=== PATIENT | male | born 1955 | race Caucasian/White ===

== ENCOUNTER 2016-06-13 11:30 | Outpatient (RCR) | payer MEDICARE, OTHER ==
[~2016-06-13 11:30] MED LIST: AMBIEN 10MG10 MG PO; CALCIUM500 MG PO; CELEBREX 1100 MG/CAP PO; FOLIC ACID 11 MG/TA1 PO; LORTAB ELIX0.5 MG/ML PO; MORPHINE 1515 MG/TAB PO; MS CONTIN 330 MG/TAB PO; MUCINEX 60600 MG/TA1 PO; NEURONTIN300 MG/CAP PO; OPDIVO10 MG/ML IV; PRINIVIL40 MG PO; RT ADVAIR 228 DISKUS IH; TYLENOL #4 (1 UDTAB PO; ULTRAM 50MG TAB50 MG PO; VENTOLIN0.09 MG IH; VITAMIN D3400 I1 PO; ZOCOR 20MG20 MG PO; ZYLOPRIM 100MG100 MG PO; vit D
[2016-06-23] MEDS ORDERED: NEURONTIN600 MG/TAB PO (10:09)
[2016-06-23] MEDS ORDERED: FLEXERIL5 MG PO (10:10)
[2016-06-23] MEDS ORDERED: MORPHINE 1515 MG/TAB PO (17:37)
[2016-07-02] MEDS ORDERED: CLEOCIN HCL300 MG PO (10:28)
[2016-07-02] MEDS ORDERED: IPRATROPIUM BROM3 M1 IH ×2 (10:29)
[2016-07-02] MEDS ORDERED: MS CONTIN 330 MG/TAB PO (10:31)
[2016-07-12] MEDS ORDERED: MIRTAZAPINE7.5 MG PO (09:24)
[2016-07-12] MEDS ORDERED: TYLENOL 325MG325 MG PO (09:24)
[2016-07-12] MEDS ORDERED: K-TAB20 PO (09:25)
[2016-07-12] MEDS ORDERED: PROAIR HFA0.09 MG/AC IH (09:26)
[2016-07-12] MEDS ORDERED: MAG-OX 400400 MG/TAB PO (09:26)
[2016-07-12] MEDS ORDERED: MS CONTIN 330 MG/TAB PO (09:27)
[2016-07-12] MEDS ORDERED: MORPHINE 1515 MG/TAB PO (09:27)
== END 2016-08-18 | disposition home or self-care (01) ==
LOC: MKS.ESL.PT
DX: C79.52 Secondary malignant neoplasm of bone marrow (principal); C34.80 Malignant neoplasm of overlapping sites of unspecified bronchus and lung
CPT/HCPCS: G8978-GP; G8979-GP

== ENCOUNTER 2016-06-23 09:34 | Inpatient (IN) | payer MEDICARE, OTHER ==
[~2016-06-23] VITALS: Ht 175.3 cm; Wt 65.4 kg
[2016-06-23] VITALS (532 sets, daily range): BP systolic 93–99; BP diastolic 61–64; PULSE 91–113; TEMP 97–97.8; O2SAT 83–100
[2016-06-23 09:47] LABS: ARTERIAL BLD GAS TCO2 CT 22.7; ARTERIAL BLOOD GAS BASE EXCESS -7.8 (-2-2); ARTERIAL BLOOD GAS PO2 115.1 mmHg (80-100); ARTERIAL BLOOD GAS PO2T 115.1 (80-100); OXYHEMOGLOBIN 96.1 %
[2016-06-23 09:48] LABS: ARTERIAL BLOOD GAS PHT 7.18 C (7.35-7.45); ARTERIAL BLOOD GAS pH 7.18 (7.35-7.45)
[2016-06-23 09:49] LABS: ATS? YES
[2016-06-23 09:51] LABS: BASO # 0.1 (0.0-0.2); BASO % 0.3 % (0.0-2.0); EOS # 0.2 (0.0-0.7); EOS % 1.5 % (0-4.0); GRAN # 12.6 (1.4-6.5); GRAN % 87.8 % (42.2-75.2); HEMATOCRIT 38.5 % (42.0-52.0); HEMOGLOBIN 12.1 g/dl (13.5-18.0); LYMPH # 1.1 (1.2-3.4); LYMPH % 7.8 % (20.0-51.0); MEAN CELL VOLUME 93 fl (80.0-100.0); MEAN CORPUSCULAR HEMOGLOBIN 29 pg (27.0-31.0); MEAN CORPUSCULAR HGB CONC 31 g/dl (33.0-37.0); MEAN PLATELET VOLUME 10.5 fl (7.4-10.4); MONO # 0.3 (0.1-0.6); MONO % 2.3 % (1.7-9.3); PLATELET COUNT 180 K/mm3 (130-400); RED BLOOD COUNT 4.14 M/mm3 (4.20-5.60); REDCELL DISTRIBUTION WIDTH-CV 13.4 % (11.5-14.5); WHITE BLOOD COUNT 14.4 K/mm3 (4.8-10.8)
[2016-06-23 10:03] LABS: ADJUSTED CALCIUM 8.7 mg/dL (8.4-10.2); ALANINE AMINOTRANSFERASE 33 U/L (21-72); ALBUMIN 3.2 gm/dL (3.5-5.0); ALKALINE PHOSPHATASE 71 U/L (50-136); ANION GAP 11 mmol/L (7-16); BILIRUBIN,TOTAL 0.7 mg/dL (0.0-1.0); BLOOD UREA NITROGEN 7 mg/dL (9-20); CALCIUM 8.1 mg/dL (8.4-10.2); CARBON DIOXIDE 22 mmol/L (22-30); CHLORIDE 110 mmol/L (98-107); CREATININE, serum 0.77 mg/dL (0.66-1.25); GLUCOSE 104 mg/dL (74-106); POTASSIUM 3.5 mmol/L (3.4-5.0); SODIUM 142 mmol/L (137-145)
[2016-06-23 10:08] LABS: ACETAMINOPHEN < 10 ug/mL (10-30); INR 1.1 (0.8-3.0); PROTHROMBIN TIME 12.3 SECONDS (9.7-12.8); SALICYLATE < 1.0 mg/dL
[2016-06-23] MEDS ORDERED: NEURONTIN600 MG/TAB PO (10:09)
[2016-06-23 10:10] LABS: PARTIAL THROMBOPLASTIN TIME 59.5 SECONDS (26.0-37.0)
[2016-06-23] MEDS ORDERED: FLEXERIL5 MG PO (10:10)
[2016-06-23 10:14] LABS: B-TYPE NATRIURETIC PEPTIDE 98 pg/mL (0-125)
[2016-06-23 10:15] LABS: PH 5 (5-8); SQUAMOUS EPITHELIAL None Seen /hpf; URINE APPEARANCE Clear; URINE BACTERIA Rare /hpf; URINE BILIRUBIN Negative (NEGATIVE); URINE BLOOD Negative (NEGATIVE); URINE COLOR Yellow; URINE GLUCOSE Negative (NEGATIVE); URINE KETONE Negative (NEGATIVE); URINE RBC 0-2 /hpf; URINE UROBILINOGEN Negative (NEGATIVE); URINE WBC 0-2 /hpf
[2016-06-23 10:16] LABS: TROPONIN-I < 0.012 ng/mL (0.000-0.034)
[2016-06-23 10:24] LABS: AMPHETAMINE URINE NEGATIVE; BARBITURATES URINE NEGATIVE; BENZODIAZEPINES URINE NEGATIVE; BUPRENORPHINE URINE NEGATIVE; METHADONE URINE NEGATIVE; OPIATES URINE POSITIVE; OXYCODONE URINE NEGATIVE; PHENCYCLIDINE URINE NEGATIVE; PROPOXYPHENE URINE NEGATIVE; THC CANNABINOIDS URINE NEGATIVE
[2016-06-23 11:27] LABS: ARTERIAL BLD GAS O2 SATURATION 97.4 % (92-100); ARTERIAL BLD GAS TCO2 CT 22.6; ARTERIAL BLOOD GAS HCO3 20.8 meq/L (22-26); OXYHEMOGLOBIN 96.6 %
[2016-06-23 11:28] LABS: ARTERIAL BLOOD GAS PHT 7.18 C (7.35-7.45); ARTERIAL BLOOD GAS PO2 131.5 mmHg (80-100); ARTERIAL BLOOD GAS PO2T 131.5 (80-100); ARTERIAL BLOOD GAS pH 7.18 (7.35-7.45); ATS? YES
[2016-06-23 15:54] LABS: ARTERIAL BLD GAS O2 SATURATION 93.5 % (92-100); ARTERIAL BLD GAS TCO2 CT 25.5; ARTERIAL BLOOD GAS BASE EXCESS -4.1 (-2-2); ARTERIAL BLOOD GAS HCO3 23.8 meq/L (22-26); ARTERIAL BLOOD GAS PHT 7.25 C (7.35-7.45); ARTERIAL BLOOD GAS PO2 81.4 mmHg (80-100); ARTERIAL BLOOD GAS PO2T 81.4 (80-100); ARTERIAL BLOOD GAS pH 7.25 (7.35-7.45); OXYHEMOGLOBIN 92.6 %
[2016-06-23 15:55] LABS: ABG VENTILATOR TIDAL VOLUME 500 mL; ATS? YES
[2016-06-23 16:27] LABS: pH GASTRIC CONTENTS 3
[2016-06-23 17:02] LABS: HEMATOCRIT 36.4 % (42.0-52.0); HEMOGLOBIN 11.6 g/dl (13.5-18.0)
[2016-06-23] MEDS ORDERED: MORPHINE 1515 MG/TAB PO (17:37)
[2016-06-23 18:34] LABS: ARTERIAL BLD GAS O2 SATURATION 98.6 % (92-100); ARTERIAL BLD GAS TCO2 CT 21.4; ARTERIAL BLOOD GAS BASE EXCESS -8.5 (-2-2); ARTERIAL BLOOD GAS HCO3 19.8 meq/L (22-26); ARTERIAL BLOOD GAS PO2 196.1 mmHg (80-100)
[2016-06-23 18:35] LABS: ALLEN TEST NO; ARTERIAL BLOOD GAS PO2T 196.1 (80-100); ATS? YES
[2016-06-23 18:36] LABS: ABG VENTILATOR TIDAL VOLUME 500 mL
[2016-06-23 18:48] LABS: ARTERIAL BLD GAS O2 SATURATION 97.8 % (92-100); ARTERIAL BLD GAS TCO2 CT 28.9; ARTERIAL BLOOD GAS BASE EXCESS 0.2 (-2-2); ARTERIAL BLOOD GAS HCO3 27.2 meq/L (22-26); ARTERIAL BLOOD GAS PHT 7.31 C (7.35-7.45); ARTERIAL BLOOD GAS pH 7.31 (7.35-7.45); OXYHEMOGLOBIN 97.1 %
[2016-06-23 18:49] LABS: ARTERIAL BLOOD GAS pH 7.31 (7.35-7.45)
[2016-06-23 18:50] LABS: ALLEN TEST YES; ALLENS TEST RESULT PASS; ARTERIAL BLD GAS O2 SATURATION 97.8 % (92-100); ARTERIAL BLD GAS TCO2 CT 28.9; ARTERIAL BLOOD GAS BASE EXCESS 0.2 (-2-2); ARTERIAL BLOOD GAS HCO3 27.2 meq/L (22-26); ARTERIAL BLOOD GAS PO2 123.7 mmHg (80-100); ATS? YES
[2016-06-23 22:44] LABS: HEMATOCRIT 33.1 % (42.0-52.0); HEMOGLOBIN 10.4 g/dl (13.5-18.0)
[2016-06-24] VITALS (1186 sets, daily range): BP systolic 93–112; BP diastolic 48–64; PULSE 96–120; TEMP 97–99.2; O2SAT 85–100
[2016-06-24 05:03] LABS: ARTERIAL BLD GAS O2 SATURATION 92.5 % (92-100); ARTERIAL BLD GAS TCO2 CT 35.6; ARTERIAL BLOOD GAS BASE EXCESS 8.6 (-2-2); ARTERIAL BLOOD GAS PHT 7.44 C (7.35-7.45); ARTERIAL BLOOD GAS pH 7.44 (7.35-7.45); OXYHEMOGLOBIN 91.6 %
[2016-06-24 05:04] LABS: ARTERIAL BLOOD GAS pH 7.44 (7.35-7.45)
[2016-06-24 05:05] LABS: ALLEN TEST YES; ALLENS TEST RESULT PASS; ARTERIAL BLD GAS O2 SATURATION 92.5 % (92-100); ARTERIAL BLD GAS TCO2 CT 35.6; ARTERIAL BLOOD GAS BASE EXCESS 8.6 (-2-2); ATS? YES
[2016-06-24 05:31] LABS: MEAN CELL VOLUME 92 fl (80.0-100.0); MEAN CORPUSCULAR HGB CONC 32 g/dl (33.0-37.0); MEAN PLATELET VOLUME 10.8 fl (7.4-10.4); PLATELET COUNT 144 K/mm3 (130-400); RED BLOOD COUNT 3.28 M/mm3 (4.20-5.60); REDCELL DISTRIBUTION WIDTH-CV 13.8 % (11.5-14.5); WHITE BLOOD COUNT 10.5 K/mm3 (4.8-10.8)
[2016-06-24 05:40] LABS: ADD PATHOLOGY DIFF REVIEW NO; HEMOGLOBIN 9.5 g/dl (13.5-18.0); MEAN CORPUSCULAR HEMOGLOBIN 29 pg (27.0-31.0)
[2016-06-24 05:54] LABS: ADJUSTED CALCIUM 8.6 mg/dL (8.4-10.2); ALBUMIN 2.5 gm/dL (3.5-5.0); BILIRUBIN,TOTAL 0.8 mg/dL (0.0-1.0); CALCIUM 7.4 mg/dL (8.4-10.2); CREATININE, serum 0.86 mg/dL (0.66-1.25); MAGNESIUM 1.5 mg/dL (1.6-2.3); PHOSPHOROUS 3.8 mg/dL (2.5-4.5); POTASSIUM 3.2 mmol/L (3.4-5.0); TOTAL PROTEIN 4.9 gm/dL (6.4-8.2)
[2016-06-24 06:06] LABS: BAND 42 % (0-10); NEUTROPHILS 48 % (42.0-75.2); TOTAL CELLS COUNTED 100
[2016-06-24 14:24] LABS: HEMATOCRIT 28.1 % (42.0-52.0); HEMOGLOBIN 9.1 g/dl (13.5-18.0)
[2016-06-24 16:59] LABS: HEMOGLOBIN 8.7 g/dl (13.5-18.0)
[2016-06-24 17:00] LABS: HEMATOCRIT 26.6 % (42.0-52.0)
[2016-06-24 23:39] LABS: HEMATOCRIT 29.3 % (42.0-52.0); HEMOGLOBIN 9.4 g/dl (13.5-18.0)
[2016-06-25] VITALS (1121 sets, daily range): BP systolic 109–142; BP diastolic 64–99; PULSE 65–82; TEMP 96.5–97.9; O2SAT 54–100
[2016-06-25 04:39] LABS: ARTERIAL BLD GAS O2 SATURATION 96.2 % (92-100); ARTERIAL BLD GAS TCO2 CT 28.1; ARTERIAL BLOOD GAS BASE EXCESS 0.8 (-2-2); ARTERIAL BLOOD GAS HCO3 26.6 meq/L (22-26); ARTERIAL BLOOD GAS PHT 7.36 C (7.35-7.45); ARTERIAL BLOOD GAS PO2 93.6 mmHg (80-100); ARTERIAL BLOOD GAS PO2T 93.6 (80-100); ARTERIAL BLOOD GAS pH 7.36 (7.35-7.45); OXYHEMOGLOBIN 95.4 %
[2016-06-25 04:41] LABS: ATS? YES
[2016-06-25 05:39] LABS: MEAN CELL VOLUME 92 fl (80.0-100.0); MEAN CORPUSCULAR HGB CONC 32 g/dl (33.0-37.0); PLATELET COUNT 121 K/mm3 (130-400); RED BLOOD COUNT 3.14 M/mm3 (4.20-5.60); REDCELL DISTRIBUTION WIDTH-CV 13.9 % (11.5-14.5); WHITE BLOOD COUNT 7.1 K/mm3 (4.8-10.8)
[2016-06-25 05:45] LABS: ADD PATHOLOGY DIFF REVIEW NO; HEMATOCRIT 28.9 % (42.0-52.0); HEMOGLOBIN 9.1 g/dl (13.5-18.0); MEAN CORPUSCULAR HEMOGLOBIN 29 pg (27.0-31.0)
[2016-06-25 05:54] LABS: ADJUSTED CALCIUM 8.7 mg/dL (8.4-10.2); ALBUMIN 2.5 gm/dL (3.5-5.0); BILIRUBIN,TOTAL 0.7 mg/dL (0.0-1.0); CALCIUM 7.5 mg/dL (8.4-10.2); CREATININE, serum 0.84 mg/dL (0.66-1.25); MAGNESIUM 2.5 mg/dL (1.6-2.3); PHOSPHOROUS 3.2 mg/dL (2.5-4.5); POTASSIUM 3.4 mmol/L (3.4-5.0); TOTAL PROTEIN 5.1 gm/dL (6.4-8.2)
[2016-06-25 07:01] LABS: BAND 42 % (0-10); NEUTROPHILS 53 % (42.0-75.2); PLATELET ESTIMATE DECREASED (NORMAL); TOTAL CELLS COUNTED 100
[2016-06-25 13:32] LABS: CHOLESTEROL 91 mg/dL (120-200); TRIGLYCERIDE 92 mg/dL
[2016-06-26] VITALS (670 sets, daily range): BP systolic 135–171; BP diastolic 80–94; PULSE 65–99; TEMP 97.4–98.2; O2SAT 75–100
[2016-06-26 04:58] LABS: ARTERIAL BLD GAS O2 SATURATION 96.2 % (92-100); ARTERIAL BLD GAS TCO2 CT 25.4; ARTERIAL BLOOD GAS BASE EXCESS -1.8 (-2-2); ARTERIAL BLOOD GAS PHT 7.34 C (7.35-7.45); ARTERIAL BLOOD GAS PO2 89.2 mmHg (80-100); ARTERIAL BLOOD GAS PO2T 89.2 (80-100); ARTERIAL BLOOD GAS pH 7.34 (7.35-7.45); OXYHEMOGLOBIN 95.5 %
[2016-06-26 04:59] LABS: ALLEN TEST NO; ATS? YES
[2016-06-26 06:13] LABS: BASO % 0.2 % (0.0-2.0); GRAN # 5.1 (1.4-6.5); GRAN % 88.7 % (42.2-75.2); LYMPH # 0.2 (1.2-3.4); LYMPH % 4.2 % (20.0-51.0); MEAN CELL VOLUME 93 fl (80.0-100.0); MEAN CORPUSCULAR HGB CONC 31 g/dl (33.0-37.0); MEAN PLATELET VOLUME 11.1 fl (7.4-10.4); MONO # 0.4 (0.1-0.6); MONO % 6.4 % (1.7-9.3); PLATELET COUNT 129 K/mm3 (130-400); REDCELL DISTRIBUTION WIDTH-CV 13.6 % (11.5-14.5); WHITE BLOOD COUNT 5.8 K/mm3 (4.8-10.8)
[2016-06-26 06:18] LABS: HEMATOCRIT 28.7 % (42.0-52.0); MEAN CORPUSCULAR HEMOGLOBIN 29 pg (27.0-31.0)
[2016-06-26 06:27] LABS: ADJUSTED CALCIUM 9.4 mg/dL (8.4-10.2); ALBUMIN 2.6 gm/dL (3.5-5.0); BILIRUBIN,TOTAL 0.5 mg/dL (0.0-1.0); CALCIUM 8.3 mg/dL (8.4-10.2); CREATININE, serum 0.74 mg/dL (0.66-1.25); MAGNESIUM 2.4 mg/dL (1.6-2.3); PHOSPHOROUS 1.9 mg/dL (2.5-4.5); TOTAL PROTEIN 5.3 gm/dL (6.4-8.2)
[2016-06-26 09:00] LABS: ARTERIAL BLOOD GAS PO2 123.7 mmHg (80-100); ARTERIAL BLOOD GAS PO2T 123.7 (80-100); ATS? YES
[2016-06-26 09:02] LABS: ATS? YES
[2016-06-26 11:08] LABS: ARTERIAL BLD GAS O2 SATURATION 89.4 % (92-100); ARTERIAL BLD GAS TCO2 CT 21.4; ARTERIAL BLOOD GAS BASE EXCESS -2.9 (-2-2); ARTERIAL BLOOD GAS HCO3 20.4 meq/L (22-26); ARTERIAL BLOOD GAS PHT 7.44 C (7.35-7.45); ARTERIAL BLOOD GAS PO2 54.6 mmHg (80-100); ARTERIAL BLOOD GAS PO2T 54.6 (80-100); ARTERIAL BLOOD GAS pH 7.44 (7.35-7.45); ATS? YES; OXYHEMOGLOBIN 88.6 %
[2016-06-26 11:09] LABS: ALLEN TEST NO
[2016-06-27] VITALS (1116 sets, daily range): BP systolic 128–151; BP diastolic 78–90; PULSE 80–110; TEMP 97–98.7; O2SAT 64–100
[2016-06-27 05:39] LABS: BASO % 0.1 % (0.0-2.0); GRAN # 7.6 (1.4-6.5); GRAN % 85.6 % (42.2-75.2); LYMPH # 0.5 (1.2-3.4); MEAN CELL VOLUME 90 fl (80.0-100.0); MEAN CORPUSCULAR HGB CONC 32 g/dl (33.0-37.0); MEAN PLATELET VOLUME 11.2 fl (7.4-10.4); MONO # 0.7 (0.1-0.6); MONO % 7.7 % (1.7-9.3); PLATELET COUNT 203 K/mm3 (130-400); RED BLOOD COUNT 3.33 M/mm3 (4.20-5.60); REDCELL DISTRIBUTION WIDTH-CV 14.1 % (11.5-14.5); WHITE BLOOD COUNT 8.8 K/mm3 (4.8-10.8)
[2016-06-27 05:58] LABS: HEMATOCRIT 29.9 % (42.0-52.0); HEMOGLOBIN 9.5 g/dl (13.5-18.0); MEAN CORPUSCULAR HEMOGLOBIN 29 pg (27.0-31.0)
[2016-06-27 06:05] LABS: ADJUSTED CALCIUM 9.5 mg/dL (8.4-10.2); ALBUMIN 2.9 gm/dL (3.5-5.0); BILIRUBIN,TOTAL 0.5 mg/dL (0.0-1.0); CALCIUM 8.6 mg/dL (8.4-10.2); CREATININE, serum 0.64 mg/dL (0.66-1.25); POTASSIUM 3.2 mmol/L (3.4-5.0); TOTAL PROTEIN 5.7 gm/dL (6.4-8.2)
[2016-06-27 06:25] LABS: MAGNESIUM 1.6 mg/dL (1.6-2.3); PHOSPHOROUS 2.8 mg/dL (2.5-4.5)
[2016-06-28] VITALS (766 sets, daily range): BP systolic 117–134; BP diastolic 69–79; PULSE 10–102; TEMP 97.8–98.9; O2SAT 84–100
[2016-06-28 05:26] LABS: BASO % 0.2 % (0.0-2.0); EOS % 0.1 % (0-4.0); GRAN # 6.6 (1.4-6.5); GRAN % 81.5 % (42.2-75.2); LYMPH # 0.5 (1.2-3.4); LYMPH % 6.4 % (20.0-51.0); MEAN CELL VOLUME 88 fl (80.0-100.0); MEAN CORPUSCULAR HGB CONC 33 g/dl (33.0-37.0); MEAN PLATELET VOLUME 10.3 fl (7.4-10.4); MONO # 0.9 (0.1-0.6); MONO % 11.1 % (1.7-9.3); PLATELET COUNT 228 K/mm3 (130-400); RED BLOOD COUNT 3.57 M/mm3 (4.20-5.60); REDCELL DISTRIBUTION WIDTH-CV 13.9 % (11.5-14.5); WHITE BLOOD COUNT 8.1 K/mm3 (4.8-10.8)
[2016-06-28 05:38] LABS: CALCIUM 8.9 mg/dL (8.4-10.2); CREATININE, serum 0.62 mg/dL (0.66-1.25); HEMATOCRIT 31.5 % (42.0-52.0); HEMOGLOBIN 10.4 g/dl (13.5-18.0); MEAN CORPUSCULAR HEMOGLOBIN 29 pg (27.0-31.0)
[2016-06-28 06:30] LABS: MAGNESIUM 1.6 mg/dL (1.6-2.3); PHOSPHOROUS 3.8 mg/dL (2.5-4.5)
[2016-06-29 02:31] VITALS: BP 119/72; PULSE 100; TEMP 97.3
[2016-06-29 07:35] VITALS: BP 135/74; PULSE 82; TEMP 97.1
[2016-06-29 08:51] LABS: CALCIUM 8.6 mg/dL (8.4-10.2); CREATININE, serum 0.71 mg/dL (0.66-1.25); MAGNESIUM 2.2 mg/dL (1.6-2.3); POTASSIUM 3.6 mmol/L (3.4-5.0)
[2016-06-29 12:51] VITALS: BP 122/70; PULSE 99; TEMP 99.2
[2016-06-29 16:25] VITALS: BP 128/72; PULSE 101; TEMP 98
[2016-06-29 20:36] VITALS: BP 109/67; PULSE 93; TEMP 97.7
[2016-06-30] VITALS (7 sets, daily range): BP systolic 104–114; BP diastolic 57–78; PULSE 86–106; TEMP 97–98.1
[2016-07-01] VITALS (7 sets, daily range): BP systolic 104–126; BP diastolic 62–85; PULSE 10–106; TEMP 98.4–98.9
[2016-07-02 03:40] VITALS: BP 104/62; PULSE 91; TEMP 98.6
[2016-07-02 07:27] VITALS: BP 125/74; PULSE 104; TEMP 98.4
[2016-07-02] MEDS ORDERED: CLEOCIN HCL300 MG PO (10:28)
[2016-07-02] MEDS ORDERED: IPRATROPIUM BROM3 M1 IH ×2 (10:29)
[2016-07-02] MEDS ORDERED: MS CONTIN 330 MG/TAB PO (10:31)
[2016-07-02 11:41] VITALS: BP 131/70; PULSE 91; TEMP 98.5
== END 2016-07-02 14:37 | DRG 981 ==
LOC: COL.ER 09:34 → ICU 12:04 → COL.ER 12:04 → MEDICAL 12:04 → ICU 06-28 19:50 → MEDICAL 07-02 14:37
PROVIDERS: Emergency Medicine; Family Medicine; Internal Medicine Pulmonary Disease
PROC: 5A1945Z Respiratory Ventilation, 24-96 Consecutive Hours (ICD-10-PCS; principal; 2016-06-23)
PROC: 0BH17EZ Insertion of Endotracheal Airway into Trachea, Via Natural or Artificial Opening (ICD-10-PCS; 2016-06-23)
PROC: 0B958ZZ Drainage of Right Middle Lobe Bronchus, Via Natural or Artificial Opening Endoscopic (ICD-10-PCS; 2016-06-24)
PROC: 0B968ZZ Drainage of Right Lower Lobe Bronchus, Via Natural or Artificial Opening Endoscopic (ICD-10-PCS; 2016-06-24)
PROC: 0B9B8ZZ Drainage of Left Lower Lobe Bronchus, Via Natural or Artificial Opening Endoscopic (ICD-10-PCS; 2016-06-24)
DX: T40.2X1A Poisoning by other opioids, accidental (unintentional), initial encounter (principal); J96.01 Acute respiratory failure with hypoxia; J69.0 Pneumonitis due to inhalation of food and vomit; J15.212 Pneumonia due to Methicillin resistant Staphylococcus aureus; J96.02 Acute respiratory failure with hypercapnia; E87.2 Acidosis; C34.31 Malignant neoplasm of lower lobe, right bronchus or lung; C79.51 Secondary malignant neoplasm of bone; C79.89 Secondary malignant neoplasm of other specified sites; F05 Delirium due to known physiological condition; K56.7 Ileus, unspecified; E87.3 Alkalosis; T48.1X1A Poisoning by skeletal muscle relaxants [neuromuscular blocking agents], accidental (unintentional), initial encounter; F10.10 Alcohol abuse, uncomplicated; I10 Essential (primary) hypertension; Z87.891 Personal history of nicotine dependence; E87.6 Hypokalemia
CPT/HCPCS: 90791-AI; 99223-AI; 99232-AI; 99233-AI; 99239; A4217; A9284; A9585; B4178; C1751; C1894; J0610; J1170; J1644; J1650; J1720; J1815; J1956; J2270; J2310; J2405; J2543; J2704; J3010; J3370; J3411; J3475; J3480; J7030; J7040; J7050; J7070; J7131

== ENCOUNTER 2016-07-01 16:56 | Inpatient (IN) | payer MEDICARE, OTHER ==
[~2016-07-01] VITALS: Ht 175.3 cm; Wt 67.4 kg
[~2016-07-01 16:56] MED LIST changes: +FLEXERIL5 MG PO; +NEURONTIN600 MG/TAB PO
[2016-07-02] MEDS ORDERED: CLEOCIN HCL300 MG PO (10:28)
[2016-07-02] MEDS ORDERED: IPRATROPIUM BROM3 M1 IH ×2 (10:29)
[2016-07-02] MEDS ORDERED: MS CONTIN 330 MG/TAB PO (10:31)
[2016-07-02 15:45] VITALS: BP 126/69; PULSE 64
[2016-07-02 16:00] VITALS: BP 125/66; PULSE 63
[2016-07-02 16:30] VITALS: BP 129/66; PULSE 64
[2016-07-02 17:00] VITALS: BP 124/69; PULSE 64
[2016-07-02 17:38] VITALS: BP 103/68; PULSE 98; TEMP 98.7
[2016-07-03 04:58] VITALS: BP 113/67; PULSE 78; TEMP 98.5
[2016-07-03 17:16] VITALS: BP 111/67; PULSE 104; TEMP 98
[2016-07-04 02:48] VITALS: BP 131/71; PULSE 98; TEMP 97.8
[2016-07-04 09:57] LABS: CALCIUM 9.3 mg/dL (8.4-10.2); CREATININE, serum 1.06 mg/dL (0.66-1.25); POTASSIUM 3.9 mmol/L (3.4-5.0)
[2016-07-04 17:35] VITALS: BP 116/71; PULSE 91; TEMP 97.5
[2016-07-05 06:52] VITALS: BP 113/69; PULSE 80; TEMP 97.2
[2016-07-05 18:01] VITALS: BP 120/82; PULSE 98; TEMP 97.6
[2016-07-06 06:29] VITALS: BP 117/69; PULSE 90; TEMP 98.3
[2016-07-06 16:04] VITALS: BP 118/82; PULSE 90; TEMP 98.2
[2016-07-07 05:05] VITALS: BP 128/81; PULSE 99; TEMP 98.2
[2016-07-07 17:50] VITALS: BP 120/72; PULSE 92; TEMP 98.4
[2016-07-08 05:10] VITALS: BP 143/80; PULSE 92; TEMP 98
[2016-07-08 07:38] LABS: CALCIUM 9.3 mg/dL (8.4-10.2); CREATININE, serum 0.9 mg/dL (0.66-1.25); POTASSIUM 3.9 mmol/L (3.4-5.0)
[2016-07-08 17:44] VITALS: BP 118/69; PULSE 90; TEMP 98.1
[2016-07-09 06:24] VITALS: BP 125/82; PULSE 98; TEMP 97.7
[2016-07-09 16:14] VITALS: BP 120/66; PULSE 90; TEMP 98.2
[2016-07-10 04:26] VITALS: BP 125/76; PULSE 89; TEMP 97.5
[2016-07-10 16:04] VITALS: BP 126/69; PULSE 90; TEMP 97
[2016-07-11 05:37] VITALS: BP 115/71; PULSE 96; TEMP 98.4
[2016-07-11 16:47] VITALS: BP 136/75; PULSE 100; TEMP 98.2
[2016-07-12 04:49] VITALS: BP 119/65; PULSE 90; TEMP 98.3
[2016-07-12] MEDS ORDERED: TYLENOL 325MG325 MG PO (09:24)
[2016-07-12] MEDS ORDERED: MIRTAZAPINE7.5 MG PO (09:24)
[2016-07-12] MEDS ORDERED: K-TAB20 PO (09:25)
[2016-07-12] MEDS ORDERED: MAG-OX 400400 MG/TAB PO (09:26)
[2016-07-12] MEDS ORDERED: PROAIR HFA0.09 MG/AC IH (09:26)
[2016-07-12] MEDS ORDERED: MORPHINE 1515 MG/TAB PO (09:27)
[2016-07-12] MEDS ORDERED: MS CONTIN 330 MG/TAB PO (09:27)
== END 2016-07-12 12:20 | disposition home or self-care (01) | DRG 917 ==
PROVIDERS: Internal Medicine
DX: T40.2X1A Poisoning by other opioids, accidental (unintentional), initial encounter (principal); G93.41 Metabolic encephalopathy; J15.212 Pneumonia due to Methicillin resistant Staphylococcus aureus; C34.12 Malignant neoplasm of upper lobe, left bronchus or lung; C79.51 Secondary malignant neoplasm of bone; I10 Essential (primary) hypertension; E87.6 Hypokalemia; G89.29 Other chronic pain; Z87.891 Personal history of nicotine dependence; F32.89 Other specified depressive episodes
CPT/HCPCS: 90791-AI; 99222-AI; 99232-AI; 99239; J1644; J1650

== ENCOUNTER → 2016-08-09 | Outpatient (CLI) | payer MEDICARE, OTHER ==
[~2016-08-09] MED LIST changes: +CLEOCIN HCL300 MG PO; +IPRATROPIUM BROM3 M1 IH; +K-TAB20 PO; +MAG-OX 400400 MG/TAB PO; +MIRTAZAPINE7.5 MG PO; +PROAIR HFA0.09 MG/AC IH; +TYLENOL 325MG325 MG PO
== END ==
LOC: COL.PUL 07-23 10:00
DX: R09.02 Hypoxemia (principal)

== ENCOUNTER → 2016-11-01 | Outpatient (CLI) | payer MEDICARE, OTHER | LOC: COL.RAD 12:08 | DX: M51.26 Other intervertebral disc displacement, lumbar region (principal); M89.9 Disorder of bone, unspecified ==

== ENCOUNTER → 2016-11-15 | Outpatient (CLI) | payer MEDICARE, OTHER | LOC: COL.RAD 11-13 13:00 | DX: M89.9 Disorder of bone, unspecified (principal); R60.0 Localized edema ==

== ENCOUNTER 2017-02-25 20:06 | Emergency (ER) | payer MEDICARE, OTHER ==
[~2017-02-25] VITALS: Ht 170.2 cm; Wt 74.1 kg
[2017-02-25 20:22] VITALS: TEMP 97.4
[2017-02-25 21:56] LABS: BASO % 0.5 % (0.0-2.0); EOS # 0.1 (0.0-0.7); EOS % 1.4 % (0-4.0); GRAN # 5.1 (1.4-6.5); GRAN % 77.8 % (42.2-75.2); LYMPH # 0.8 (1.2-3.4); LYMPH % 12.9 % (20.0-51.0); MEAN CELL VOLUME 96 fl (80.0-100.0); MEAN CORPUSCULAR HEMOGLOBIN 31 pg (27.0-31.0); MEAN CORPUSCULAR HGB CONC 33 g/dl (33.0-37.0); MEAN PLATELET VOLUME 10.5 fl (7.4-10.4); MONO # 0.5 (0.1-0.6); MONO % 7.1 % (1.7-9.3); PLATELET COUNT 168 K/mm3 (130-400); RED BLOOD COUNT 4.15 M/mm3 (4.20-5.60); REDCELL DISTRIBUTION WIDTH-CV 14.3 % (11.5-14.5); WHITE BLOOD COUNT 6.5 K/mm3 (4.8-10.8)
[2017-02-25 22:09] LABS: ADJUSTED CALCIUM 9.4 mg/dL (8.4-10.2); ALBUMIN 3.9 gm/dL (3.5-5.0); BILIRUBIN,TOTAL 0.5 mg/dL (0.0-1.0); C-REACTIVE PROTEIN 0.5 mg/dL (0.0-0.9); CALCIUM 9.3 mg/dL (8.4-10.2); CREATININE, serum 1.01 mg/dL (0.66-1.25); POTASSIUM 3.9 mmol/L (3.4-5.0); TOTAL PROTEIN 6.8 gm/dL (6.4-8.2)
[2017-02-25 23:10] VITALS: BP 148/82; PULSE 77
== END 2017-02-25 23:15 | disposition home or self-care (01) ==
LOC: COL.ER 20:06
PROVIDERS: Family Medicine
DX: R53.83 Other fatigue (principal); E86.0 Dehydration; F32.9 Major depressive disorder, single episode, unspecified; Z85.118 Personal history of other malignant neoplasm of bronchus and lung
CPT/HCPCS: J7030

== ENCOUNTER 2017-11-20 17:25 | Emergency (ER) | payer MEDICARE, OTHER ==
[~2017-11-20] VITALS: Ht 170.2 cm; Wt 81.8 kg
[2017-11-20 17:29] VITALS: BP 129/79; TEMP 99.3
[2017-11-20 20:20] VITALS: PULSE 92
== END 2017-11-20 20:20 | disposition home or self-care (01) ==
LOC: COL.ER 17:25
DX: S82.52XA Displaced fracture of medial malleolus of left tibia, initial encounter for closed fracture (principal); C34.90 Malignant neoplasm of unspecified part of unspecified bronchus or lung; Z87.891 Personal history of nicotine dependence; Z79.51 Long term (current) use of inhaled steroids; W19.XXXA Unspecified fall, initial encounter; Y92.009 Unspecified place in unspecified non-institutional (private) residence as the place of occurrence of the external cause
CPT/HCPCS: Q4045

== ENCOUNTER → 2019-01-12 | Outpatient (CLI) | payer MEDICARE, OTHER | LOC: COL.VAS 08:52 | DX: C34.12 Malignant neoplasm of upper lobe, left bronchus or lung (principal); M79.89 Other specified soft tissue disorders ==

== ENCOUNTER 2020-01-04 10:55 | Emergency (ER) | payer MEDICARE, OTHER ==
[~2020-01-04] VITALS: Ht 170.2 cm; Wt 84.1 kg
[2020-01-04 10:57] VITALS: TEMP 99
[2020-01-04] MEDS ORDERED: NEURONTIN100 MG/CAP PO (11:42)
[2020-01-04 12:57] VITALS: BP 138/74; PULSE 107
== END 2020-01-04 12:48 | disposition home or self-care (01) ==
LOC: COL.ER 10:55
DX: S82.302A Unspecified fracture of lower end of left tibia, initial encounter for closed fracture (principal); S92.152A Displaced avulsion fracture (chip fracture) of left talus, initial encounter for closed fracture; C34.90 Malignant neoplasm of unspecified part of unspecified bronchus or lung; C79.51 Secondary malignant neoplasm of bone; Z79.51 Long term (current) use of inhaled steroids; Z87.891 Personal history of nicotine dependence; X50.1XXA Overexertion from prolonged static or awkward postures, initial encounter; Y92.009 Unspecified place in unspecified non-institutional (private) residence as the place of occurrence of the external cause
CPT/HCPCS: Q4045

== ENCOUNTER → 2020-03-20 | Outpatient (CLI) | payer MEDICARE, OTHER ==
[~2020-03-20] MED LIST changes: +AMITRIPTYLINE H25 M1 PO; +ASPIRIN 32325 MG/TA1 PO; +MOVANTIK25 MG PO; +MS CONTIN 115 MG/TAB PO; +ZYRTEC 10MG10 MG PO
[2020-03-20 11:04] LABS: BASO # 0.1 (0.0-0.2); BASO % 1.3 % (0.0-2.0); EOS # 0.2 (0.0-0.7); EOS % 3.4 % (0-4.0); GRAN # 3.9 (1.4-6.5); GRAN % 73.1 % (42.2-75.2); HEMOGLOBIN 11.4 g/dl (13.5-18.0); LYMPH # 0.8 (1.2-3.4); MEAN CELL VOLUME 100 fl (80.0-100.0); MEAN CORPUSCULAR HEMOGLOBIN 31 pg (27.0-31.0); MEAN CORPUSCULAR HGB CONC 31 g/dl (33.0-37.0); MEAN PLATELET VOLUME 11.2 fl (7.4-10.4); MONO # 0.4 (0.1-0.6); MONO % 7.8 % (1.7-9.3); PLATELET COUNT 255 K/mm3 (130-400); RED BLOOD COUNT 3.65 M/mm3 (4.20-5.60); REDCELL DISTRIBUTION WIDTH-CV 14.1 % (11.5-14.5)
[2020-03-20 11:18] LABS: HEMATOCRIT 36.6 % (42.0-52.0)
[2020-03-20 11:24] LABS: ALBUMIN 3.6 gm/dL (3.5-5.0); BILIRUBIN,TOTAL 0.5 mg/dL (0.0-1.0); C-REACTIVE PROTEIN 2.4 mg/dL (0.0-0.9); CALCIUM 8.7 mg/dL (8.4-10.2); CREATININE, serum 0.91 (0.66-1.25); POTASSIUM 4.1 mmol/L (3.4-5.0); TOTAL PROTEIN 6.7 gm/dL (6.4-8.2)
[2020-03-20 12:03] LABS: ERYTHROCYTE SEDIMENTATION RATE 48 mm/hr (0-30)
== END ==
LOC: ZCOL.LAB 09:43
PROVIDERS: Internal Medicine
DX: T84.7XXD Infection and inflammatory reaction due to other internal orthopedic prosthetic devices, implants and grafts, subsequent encounter (principal)

== ENCOUNTER → 2020-03-27 | Outpatient (CLI) | payer MEDICARE, OTHER | LOC: COL.RAD 12:07 | DX: B95.62 Methicillin resistant Staphylococcus aureus infection as the cause of diseases classified elsewhere (principal); T84.7XXD Infection and inflammatory reaction due to other internal orthopedic prosthetic devices, implants and grafts, subsequent encounter; J98.4 Other disorders of lung; Z95.828 Presence of other vascular implants and grafts ==

== ENCOUNTER → 2020-04-03 | Outpatient (CLI) | payer MEDICARE, OTHER ==
[2020-04-03 12:57] LABS: BASO # 0.1 (0.0-0.2); BASO % 1.3 % (0.0-2.0); EOS # 0.3 (0.0-0.7); EOS % 6.8 % (0-4.0); GRAN # 2.8 (1.4-6.5); HEMOGLOBIN 12.4 g/dl (13.5-18.0); LYMPH # 0.9 (1.2-3.4); LYMPH % 19.2 % (20.0-51.0); MEAN CELL VOLUME 97 fl (80.0-100.0); MEAN CORPUSCULAR HEMOGLOBIN 30 pg (27.0-31.0); MEAN CORPUSCULAR HGB CONC 31 g/dl (33.0-37.0); MEAN PLATELET VOLUME 11.6 fl (7.4-10.4); MONO # 0.6 (0.1-0.6); MONO % 12.3 % (1.7-9.3); PLATELET COUNT 260 K/mm3 (130-400); RED BLOOD COUNT 4.14 M/mm3 (4.20-5.60); REDCELL DISTRIBUTION WIDTH-CV 14.5 % (11.5-14.5)
[2020-04-03 13:10] LABS: BILIRUBIN,TOTAL 0.7 mg/dL (0.0-1.0); C-REACTIVE PROTEIN 3.5 mg/dL (0.0-0.9); CREATININE, serum 1.03 (0.66-1.25); POTASSIUM 4.3 mmol/L (3.4-5.0); TOTAL PROTEIN 7.2 gm/dL (6.4-8.2)
[2020-04-03 13:34] LABS: ERYTHROCYTE SEDIMENTATION RATE 50 mm/hr (0-30)
== END ==
LOC: ZCOL.LAB 10:11
PROVIDERS: Internal Medicine
DX: Z01.89 Encounter for other specified special examinations (principal)